=== PATIENT | female | born 1950 | race American Indian/Alaskan Native ===

== ENCOUNTER 2016-05-08 01:42 | Emergency (ER) | payer MEDICARE, MEDICAID ==
[2016-05-08 02:17] LABS: Basophils % (Auto) 0.8 % (0.0-1.8); Eosinophils % (Auto) 1.8 % (0.0-4.3); Hematocrit 36.2 % (30.3-42.9); Hemoglobin 11.7 gm/dl (10.1-14.3); Mean Corpuscular HGB Conc 32 % (30-34); Mean Corpuscular Hemoglobin 27 pg (28-32); Mean Corpuscular Volume 84 fl (79-97); Platelet Count 206 K/mm3 (140-440); Red Blood Count 4.31 M/mm3 (3.65-5.03); Red Cell Distribution Width 15.3 % (13.2-15.2); White Blood Count 5.7 K/mm3 (4.5-11.0)
[2016-05-08 04:27] LABS: Blood Urea Nitrogen 18 mg/dL (7-17); Calcium 9.3 mg/dL (8.4-10.2); Carbon Dioxide 26 mmol/L (22-30); Chloride 104.7 mmol/L (98-107); Glucose 134 mg/dL (65-100); Potassium 4.6 mmol/L (3.6-5.0); Sodium 145 mmol/L (137-145)
[2016-05-08 04:32] LABS: Anion Gap 19 mmol/L
[2016-05-08] MEDS ORDERED: LASIX PO ONE (07:47)
--- NOTE | 2016-05-08 07:47 | Emergency Department Report ---
HPI - General Chief Complaint: Extremity Injury, Lower Time Seen by Provider: 05/08/16 07:41 - HPI HPI: Chief complaint: Swelling to feet HPI: Patient states she's noticed she had swelling to both of her feet over the last day. Patient works as a [employer] and is on her feet for about 12 hours. Patient noticed after work today that her feet were swollen. Patient unsure what might improve her swelling as the first time she noticed that she came straight to the emergency department. No shortness of breath or chest pain. Patient had thyroid surgery in March. No leg pain. Mode of arrival: private car Source: Patient Began: Last night Duration: Continuous Context: See above Quality: Pain-free Severity: 0 out of 10 Improved with: Nothing Worsened with: Nothing Associated signs and symptoms: No chest pain, shortness of breath, nausea, vomiting or diarrhea. ED Past Medical Hx - Past Medical History Previous Medical History?: Yes Hx Hypertension: Yes Additional medical history: High cholesterol/ ostseoporesis - Surgical History Past Surgical History?: Yes Additional Surgical History: tonsilectomy, hysterectomy,thyroid - Social History Smoking Status: Former Smoker - Medications Home Medications: Home Medications Medication Instructions Recorded Confirmed Last Taken Type Simvastatin 10 mg PO QDAY 07/09/13 07/09/13 Unknown History Ciprofloxacin HCl [Cipro] 500 mg PO BID #10 tablet 10/21/13 Unknown Rx traMADol [Ultram 50 MG tab] 50 mg PO Q6HR PRN #20 tablet 02/07/14 Unknown Rx Furosemide [Lasix] 20 mg PO QDAY #20 tablet 05/08/16 Unknown Rx Potassium Chloride [K-Dur] 10 meq PO QDAY #20 tablet 05/08/16 Unknown Rx ED Review of Systems ROS: Stated complaint: BILATERAL ANKLE EDEMA Other details as noted in HPI ROS Constitutional: No fever ENT: No uri symptoms Cardiovascular: No chest pain Respiratory: No sob or cough GI: No nausea vomiting or diarrhea : No dysuria frequency or urgency, Skin: No rash Neuro: No focal weakness or numbness Psych: No depression Oseas/lymph: edema Physical Exam - Physical Exam Vital Signs: Vital Signs 05/08/16 05/08/16 01:47 06:17 Temperature 98.4 F 97.7 F Pulse Rate 84 69 Respiratory 18 18 Rate Blood Pressure 90/57 128/74 O2 Sat by Pulse 96 96 Oximetry Physical Exam: GENERAL: The patient is well-developed well-nourished . HEENT: Normocephalic. Atraumatic. Extraocular motions are intact. Patient has moist mucous membranes. NECK: Supple. No meningitic signs are noted. There is no adenopathy noted. CHEST/LUNGS: Clear to auscultation. There is no respiratory distress noted. HEART/CARDIOVASCULAR: Regular. There is no tachycardia. There is no gallop rub or murmur. ABDOMEN: Abdomen is soft, nontender. Patient has normal bowel sounds. There is no abdominal distention. SKIN: There is no rash. There is 1+ bilateral pedal edema. There is no diaphoresis. NEURO: The patient is awake, alert, and oriented. The patient is cooperative. The patient has no focal neurologic deficits. The patient has normal speech. MUSCULOSKELETAL: There is no tenderness or deformity. There is no limitation range of motion. There is no evidence of acute injury. ED Course Vital Signs 05/08/16 05/08/16 01:47 06:17 Temperature 98.4 F 97.7 F Pulse Rate 84 69 Respiratory 18 18 Rate Blood Pressure 90/57 128/74 O2 Sat by Pulse 96 96 Oximetry ED Medical Decision Making - Lab Data Result diagrams: 05/08/16 02:05 05/08/16 04:05 Laboratory Tests 05/08/16 04:05 NT-Pro-B Natriuret Pep 30.08 - Radiology Data Radiology results: report reviewed ( Doppler ultrasound shows no DVT to lower extremities.) Critical care attestation.: If time is entered above; I have spent that time in minutes in the direct care of this critically ill patient, excluding procedure time. ED Disposition Clinical Impression: Dependent edema Disposition: DISCHARGED TO HOME OR SELFCARE Is pt being admited?: No Does the pt Need Aspirin: No Condition: Stable Instructions: Leg Edema (ED) Additional Instructions: Wear support hose when working. Prescriptions: Furosemide [Lasix] 20 mg PO QDAY #20 tablet Potassium Chloride [K-Dur] 10 meq PO QDAY #20 tablet Referrals: RAINER ASHTON MD [Primary Care Provider] - 3-5 Days Time of Disposition: 10:47
[2016-05-08 10:53] VITALS: BP 124/79
--- NOTE | 2016-05-09 07:40 | Vascular Lab Report ---
LOWER EXTREMITY VENOUS DUPLEX: REASON FOR EXAM: Bilateral leg swelling. COMMENTS ON THE RIGHT: All veins visualized are freely compressible without evidence of internal echogenicity. Flow is spontaneous and phasic throughout. COMMENTS ON THE LEFT: All veins visualized are freely compressible without evidence of internal echogenicity. Flow is spontaneous and phasic throughout. IMPRESSION: No evidence of acute or chronic deep venous thrombosis in either lower extremity.
== END 2016-05-08 10:53 | disposition home or self-care (01) ==
LOC: ED 01:42
DX: R60.9 Edema, unspecified (principal); I10 Essential (primary) hypertension; E78.00 Pure hypercholesterolemia, unspecified; Z87.891 Personal history of nicotine dependence
CPT/HCPCS: 36415; 80048; 83880; 85025; 93970; 99283

== ENCOUNTER 2016-09-13 11:14 | Outpatient (CLI) | payer MEDICARE, OTHER ==
--- NOTE | 2016-09-13 13:07 | Mammography Report ---
BONE DENSITY STUDY: DEFINITIONS: BMD = Bone Mineral Density T-score = BMD related to mean peak bone mass of young adult (mean expressed in Standard Deviation) Z-score = Age matched BMD expressed in SD World Health Organization (WHO) Diagnostic Criteria Normal T-score > -1 SD Osteopenia T-score between -1 and -2.4 SD Osteoporosis T-score -2.5 SD or below FINDINGS: The weighted average BMD of lumbar spine L1-L4 is 0.851 with a T-score of -1.8. The weighted average BMD of hip is 0.789 with a T-score of -1.3. IMPRESSION: The patient's T-score is diagnostic for osteopenia and average relative risk for fracture. NOTE: BMD is not the only risk factor for fracture; also consider factors such as the patient's age, risk of falling, previous osteoporotic fracture, family history of osteoporotic fractures, current smoker, and low body weight. Sharma's triangle is a region of interest in femur, predominantly of trabecular bone. It is not a true anatomic site, and [facility] does not recommend its use clinically.
== END 2016-09-13 11:15 | disposition home or self-care (01) ==
LOC: MAMMO 11:14
PROVIDERS: ATTEND Family Medicine
DX: M85.88 Other specified disorders of bone density and structure, other site (principal)
CPT/HCPCS: 77080